=== PATIENT | male | born 1940 | race Caucasian/White ===

== ENCOUNTER → 2016-04-23 | Outpatient (CLI) | payer OTHER ==
[~2016-04-23] MED LIST: GLIM4TAB2 PO; LOSA100T65 PO; METF-384 PO; NRV/5 PO; TRIA37.5 PO
[2016-04-23 13:27] LABS: ESTIMATED AVERAGE GLUCOSE 197 mg/dl; HA1C FLAG Normal (Normal)
[2016-04-23 13:37] LABS: ALT/SGPT 36 U/L (12-78); AST/SGOT 29 U/L (15-37); BLOOD UREA NITROGEN 14 mg/dl (7-18); BUN/CREATININE RATIO 15.7 (10-20); CALCIUM 8.8 mg/dl (8.5-10.1); CARBON DIOXIDE 23 mmol/L (21-32); CHLORIDE 105 mmol/L (98-107); CHOLESTEROL 206 mg/dl (0-200); CREATININE 0.92 mg/dl (0.60-1.40); GLUCOSE 197 mg/dl (70-99); POTASSIUM 4.1 mmol/L (3.5-5.1); SODIUM 139 mmol/L (136-145); TRIGLYCERIDES 130 mg/dl (0-150); VERY LOW DENSITY LIPOPROT CALC 26 mg/dl
[2016-04-23 13:40] LABS: ALB/GLOB RATIO 1.1 (0.9-2); ALKALINE PHOSPHATASE 98 U/L (45-117); CHOLESTEROL/HDL RATIO 4.8; HDL CHOLESTEROL 43 mg/dl; LDL CHOLESTEROL CALCULATED 137 mg/dl
--- NOTE | 2016-04-27 11:57 | CODING QUERY MEDICAL NECESSITY ---
SUPPORTING DIAGNOSIS NEEDED A supporting diagnosis is required for the test/procedure performed on this patient in order for us to be reimbursed by the patient's insurance. Please provide a supporting diagnosis for the following test/procedure listed below next to the test name along with your signature. *If there is no additional diagnosis for this patient that would support the following test/procedure please document that below next to the test/procedure. Test(s)/Procedure(s) that require a supporting diagnosis: * VITAMIN D 25-HYDROXY DIAGNOSIS: * DOS: 04/23/16 Provider Signature: Date: Thank you Emma Lr Health Information Management Once completed, please kindly fax back to [phone] For questions please call [phone]
== END | disposition home or self-care (01) ==
LOC: C.LABPVFM 09:04
PROVIDERS: ATTEND Nurse Practitioner Family
DX: Z00.00 Encounter for general adult medical examination without abnormal findings (principal); E11.9 Type 2 diabetes mellitus without complications; E78.5 Hyperlipidemia, unspecified; E55.9 Vitamin D deficiency, unspecified

== ENCOUNTER → 2016-11-04 | Outpatient (CLI) | payer OTHER | END | disposition home or self-care (01) | LOC: C.LABPVFM 07:09 | PROVIDERS: ATTEND Nurse Practitioner Family | DX: E55.9 Vitamin D deficiency, unspecified (principal) ==

== ENCOUNTER → 2016-11-11 | Outpatient (CLI) | payer OTHER ==
--- NOTE | 2016-11-11 13:04 | DIAGNOSTIC IMAGING REPORT ---
RIGHT SHOULDER 3 VIEWS CLINICAL HISTORY: Right shoulder pain. FINDINGS: 3 views of the right shoulder are obtained. No prior studies are available for comparison at the time of dictation. The skeletal structures are osteopenic. No fracture or dislocation is seen. Advanced productive degenerative change is identified at the acromioclavicular joint. Arthritic change is also seen at the glenohumeral joint with narrowing of the joint space, bone sclerosis, subchondral cyst rotation, and large spurs arising from the inferior aspect of the humeral head. Arthritic change is also seen in the greater tuberosity. The overlying soft tissues are within normal limits. The imaged right upper lobe lung parenchyma appears clear. IMPRESSION: Osteopenia and arthritic change as above. No right shoulder fracture or dislocation is seen. Electronically signed by: Valentín Moody M.D. 11/11/2016 1:02 PM Dictated Date/Time: 11/11/2016 1:01 PM
[2016-11-11 18:10] LABS: ALT/SGPT 32 U/L (12-78); BLOOD UREA NITROGEN 12 mg/dl (7-18); BUN/CREATININE RATIO 13.9 (10-20); CALCIUM 8.9 mg/dl (8.5-10.1); CARBON DIOXIDE 25 mmol/L (21-32); CHLORIDE 104 mmol/L (98-107); CHOLESTEROL 203 mg/dl (0-200); CREATININE 0.89 mg/dl (0.60-1.40); GLUCOSE 137 mg/dl (70-99); POTASSIUM 3.9 mmol/L (3.5-5.1); SODIUM 138 mmol/L (136-145)
[2016-11-11 18:13] LABS: ALB/GLOB RATIO 1.1 (0.9-2); ALKALINE PHOSPHATASE 90 U/L (45-117); AST/SGOT 25 U/L (15-37); CHOLESTEROL/HDL RATIO 4.4; HDL CHOLESTEROL 46 mg/dl; LDL CHOLESTEROL CALCULATED 124 mg/dl; TRIGLYCERIDES 167 mg/dl (0-150); VERY LOW DENSITY LIPOPROT CALC 33 mg/dl
[2016-11-11 18:42] LABS: LYME DISEASE AB IGG NEG (NEG); LYME DISEASE AB IGM NEG (NEG)
[2016-11-12 08:19] LABS: ESTIMATED AVERAGE GLUCOSE 177 mg/dl; HA1C FLAG Normal (Normal)
== END | disposition home or self-care (01) ==
LOC: C.RADPV 12:07
PROVIDERS: ATTEND Nurse Practitioner Family
DX: M25.511 Pain in right shoulder (principal); W57.XXXA Bitten or stung by nonvenomous insect and other nonvenomous arthropods, initial encounter; I10 Essential (primary) hypertension; E11.9 Type 2 diabetes mellitus without complications; E78.5 Hyperlipidemia, unspecified

== ENCOUNTER → 2017-07-26 | Outpatient (CLI) | payer OTHER ==
[2017-07-26 12:55] LABS: ALBUMIN 4.1 gm/dl (3.4-5.0); BLOOD UREA NITROGEN 14 mg/dl (7-18); CALCIUM 8.8 mg/dl (8.5-10.1); CARBON DIOXIDE 24 mmol/L (21-32); CREATININE 0.93 mg/dl (0.60-1.40); GLUCOSE 122 mg/dl (70-99); POTASSIUM 4.1 mmol/L (3.5-5.1); SODIUM 136 mmol/L (136-145)
[2017-07-26 13:00] LABS: ALKALINE PHOSPHATASE 80 U/L (45-117); ALT/SGPT 24 U/L (12-78); AST/SGOT 27 U/L (15-37); CHOLESTEROL 186 mg/dl (0-200); LDL CHOLESTEROL CALCULATED 119 mg/dl; TOTAL PROTEIN 7.5 gm/dl (6.4-8.2)
[2017-07-26 13:07] LABS: HEMOGLOBIN A1C 7.4 % (4.5-5.6)
== END | disposition home or self-care (01) ==
LOC: C.LABPVFM 08:44
PROVIDERS: ATTEND Nurse Practitioner Family
DX: E11.9 Type 2 diabetes mellitus without complications (principal); E78.5 Hyperlipidemia, unspecified

== ENCOUNTER 2025-02-03 03:46 | Observation (INO) ==
--- NOTE | 2025-02-03 04:00 | Emergency Department Note ---
Impression & Plan Stroke-like symptom Admission ED Provider Note HPI: History obtained from patient. The patient is a 84-year-old gentleman with history of previous CVA, BPH, type 2 diabetes, paroxysmal atrial fibrillation, coronary artery disease, hypertension, who presents to the emergency department with a chief complaint of visual changes from his left eye that been ongoing since yesterday. Patient states he has baseline poor vision from his right eye since childhood secondary to amblyopia, he states over the past 24 hours or so he has also developed a variety of different visual changes from his left eye and now he feels that his vision is worse in his left eye than it is in the right eye. Patient denies any motor deficits, denies any paresthesias in the extremities. On arrival here to the ED the patient is alert, he follows commands appropriately, he does not have any focal deficits, he otherwise appears to be in no acute distress. Patient denies any ocular pain, denies any trauma or foreign body sensation to the eye. ROS: - Per HPI Differential Diagnosis: Acute ischemic stroke, optic neuritis, macular degeneration, diabetic retinopathy, glaucoma, retinal detachment, vitreous hemorrhage, amongst other potential pathologies. *Outpatient medications and allergy history reviewed. PE: General: Alert HEENT: Normocephalic, trachea midline Eyes: Extraocular eye movement is intact, no scleral erythema, pupils are equal and reactive bilaterally Pulmonary: Clear to auscultation bilaterally, no wheezing Cardio: Regular rate and rhythm GI: Abdomen is soft to palpation : No suprapubic tenderness MSK: No evidence of trauma or malformation of the extremities, no edema Skin: No evidence of rash Neuro: Alert, no focal deficits, equal bilateral hydrogeology professor strength, symmetrical facial movements are appreciated, no drift of the upper extremities or lower extremities with testing against gravity Psychiatric: Cooperative Intraocular pressure: Right eye: 12 mmHg Left eye: 14 mmHg INDEPENDENT INTERPRETATIONS: monitoring manager: (As interpreted by myself): - An order was placed for continuous cardiac monitoring - Patient was noted to be in sinus rhythm with a rate of 78 EKG: (As interpreted by myself): Rate: 77 Rhythm: Sinus rhythm Intervals: QRS 148 ms, QTc 504 ms, within normal limits ST changes: No ST elevation Time: 0351 NIH STROKE SCALE: 1A: Level of consciousness Alert; keenly responsive 0 1B: Ask month and age Both questions right 0 1C: 'Blink eyes' & 'squeeze hands' Performs both tasks 0 2: Horizontal extraocular movements Normal 0 3: Visual chaudhary +2 4: Facial palsy Normal symmetry 0 5A: Left arm motor drift No drift for 10 seconds 0 5B: Right arm motor drift No drift for 10 seconds 0 6A: Left leg motor drift No drift for 5 seconds 0 6B: Right leg motor drift No drift for 5 seconds 0 7: Limb Ataxia No ataxia 0 8: Sensation Normal; no sensory loss 0 9: Language/aphasia Normal; no aphasia 0 10: Dysarthria Normal 0 11: Extinction/inattention No abnormality 0 TOTAL NIH SCORE = +2 Interventions provided in ED: -ASA, IV fluid bolus Medical Decision Making: Shortly after the patient arrived IV was established and lab work obtained, patient was placed on classroom monitor. Stroke scale is 2 for visual changes, patient is not a candidate for thrombolytics given onset of symptoms yesterday and being outside the window for thrombolytics. Patient overall appears well without any focal motor deficits, he complains of some visual change that started yesterday at around 2 PM. Given this, stroke workup was initiated. Patient is noted to have baseline deficits of his right eye/vision therefore unclear if his symptoms are actually bilateral. Patient was not able to read anything on visual acuity testing per the RN. Lab work shows no leukocytosis, hemoglobin is 9.3 which is near baseline for the patient, platelet count is normal, CMP does not show any evidence of any critical findings. Glucose is 147, troponin is negative, EKG per my interpretation shows normal sinus rhythm. CT imaging of the head as well as CT angiography of the head and neck were obtained, there is no evidence of any acute intracranial hemorrhage, suggestion is made of luminal narrowing at the right vertebral artery hypoplastic versus possible thrombosis. Patient was given aspirin here in the ED, he was he was also given IV fluids. Intraocular pressures were normal bilaterally. Low suspicion for glaucoma. No evidence of any foreign body grossly, no reported history of any trauma or foreign body sensation. Patient could potentially have retinal pathology or vitreous hemorrhage however at this point I think stroke workup would be the most urgent concern. We do not have ophthalmology available for emergent consultation at this hospital. I discussed all of this with the patient as well as his family at the bedside, they are in agreement for admission at this time for secondary workup and likely MRI imaging of the brain. I discussed the patient's case with the on-call hospitalist, Dr. Geiger, he is in agreement for admission. Patient was placed for admission in stable condition. Consultants/Discussions held with other healthcare providers: -Hospitalist, Dr. Geiger Disposition discussion held by myself with: -Patient and patient's family at the bedside Diagnosis: 1. Acute onset visual changes, nonspecific 2. Strokelike episode, acute Disposition: Admission Kong Sanon DO Emergency Medicine Past Med/Surg History Problem List (Updated 02/03/25 @ 05:55 by Kong Sanon DO) Stroke-like symptom (Acute) Sciatica of right side Peripheral neuropathy Peripheral edema BPH (benign prostatic hyperplasia) Ischemic stroke 09/08 on plavix, ASA stopped after 3 weeks Asthma (Chronic) RARELY USES PRN INH Diabetes mellitus, type 2 (Chronic) NIDDM Paroxysmal atrial fibrillation (Chronic) HX-UNDER CONTROL Esophageal dysphagia (Chronic) Anemia (Acute) Hypercholesterolemia (Chronic) GERD without esophagitis (Acute) CAD (coronary artery disease) (Chronic) HTN (hypertension) (Chronic) Medical History History of colon polyps Difficulty swallowing Sleep apnea Positive colorectal cancer screening using Cologuard test Arthritis Myocardial Infarction Aortic stenosis Pathologic fracture Hemarthrosis Mitral valve disease Left knee DJD Surgical History H/O aortic valve replacement History of cardiac cath History of coronary artery bypass graft x 2 History of colonoscopy History of right inguinal hernia repair History of cataract extraction History of uvulopalatopharyngoplasty S/P CABG x 2 Family History Mother Cancer Sister Breast cancer Denies family history of Ovarian cancer Prostate cancer Myocardial infarction Colorectal cancer Social History Smoking Status: Never smoker Second Hand Exposure: No; Do You Dip or Chew Tobacco: No; Hx Alcohol Use: Yes Hx Substance Use: No Preferred Language: Swedish Communication Ability: Effective Visual Impairment: Limited Hearing Ability: Normal Operators Teacher Required: No Beliefs That Will Affect Care: None marital status: Current Living Situation: Spouse current occupational status: retired How many Children do You have: 3 Feels Safe at Home: Yes Childhood Exposure to Second-Hand Smoke: No Diet: regular caffeine: Yes (Tea) Dental Care, Regularly: No Physical Activity Frequency: Daily Seatbelt Use: sometimes Sunscreen Use: Yes (sometimes ) Assistive Devices: Cane, Denture - Upper, Denture - Lower and Glasses Allergies Allergies Allergy/AdvReac Type Severity Reaction Status Date / Time Sulfa (Sulfonamide Allergy Mild UNKNOWN Verified 01/28/25 08:13 Antibiotics) Home Meds Home Medications Medication Instructions Recorded Confirmed acetaminophen 500 mg tablet 1,000 mg PO Q6H PRN Pain 11/30/17 01/28/25 (Tylenol Extra Strength) multivitamin 1 tab PO QAM 08/31/18 01/28/25 Previous Rx's Medication Instructions Recorded ibuprofen 200 mg tablet 400 mg (2 x 200 mg) PO Q8H PRN 10/12/21 pain #30 tabs compression stockings #1 ea 03/22/22 blood sugar diagnostic #200 ea 05/05/22 amlodipine 10 mg tablet 10 mg PO QPM #30 tabs 02/23/24 atorvastatin 10 mg tablet 10 mg PO DAILY #90 tabs 04/09/24 furosemide 20 mg tablet 20 mg PO DAILY PRN edema #90 tabs 04/29/24 tamsulosin 0.4 mg capsule 0.8 mg (2 x 0.4 mg) PO DAILY #180 05/08/24 caps albuterol sulfate 90 mcg/actuation 1 inh inhalation QID PRN shortness 05/24/24 aerosol inhaler of breath or wheezing #20.1 grams clopidogrel 75 mg tablet 75 mg PO DAILY #90 tabs 09/17/24 metoprolol tartrate 25 mg tablet 12.5 mg (1/2 x 25 mg) PO BID #90 09/17/24 tabs losartan 100 mg tablet 100 mg PO DAILY #90 tabs 11/08/24 glimepiride 2 mg tablet See Rx Instructions PO QAM #90 tabs 01/27/25 gabapentin 100 mg capsule 100 mg PO .COMPLEX #60 caps 01/28/25 Results & Data (ED) Vital Signs Vital Signs - 24 hr 02/03/25 03:50 02/03/25 03:53 02/03/25 04:00 Temperature 36.6 C Temperature Source Oral Pulse Rate 82 76 76 Pulse Rhythm Regular Pulse Strength Normal Respiratory Rate 17 16 Respiratory Effort / Characteristics Non-Labored Spontaneous Respiratory Depth Normal Respiratory Pattern Regular Blood Pressure 151/89 H 153/82 H Blood Pressure Mean 109 106 Pulse Oximetry 97 94 Oxygen Delivery Method Room Air Room Air Sepsis Recent Fever Within 48 Hours No Sepsis New/Unexplained Change in Mental Status No Sepsis Action Taken by Nursing No Action Required 02/03/25 04:09 02/03/25 04:15 02/03/25 04:30 Temperature Temperature Source Pulse Rate 73 76 79 Pulse Rhythm Pulse Strength Respiratory Rate 16 14 14 Respiratory Effort / Characteristics Respiratory Depth Respiratory Pattern Blood Pressure 141/67 H 140/64 138/72 Blood Pressure Mean 100 91 105 Pulse Oximetry 94 94 96 Oxygen Delivery Method Room Air Room Air Room Air Sepsis Recent Fever Within 48 Hours Sepsis New/Unexplained Change in Mental Status Sepsis Action Taken by Nursing 02/03/25 05:03 02/03/25 05:15 02/03/25 05:15 Temperature Temperature Source Pulse Rate 72 76 70 Pulse Rhythm Pulse Strength Respiratory Rate 16 20 16 Respiratory Effort / Characteristics Respiratory Depth Respiratory Pattern Blood Pressure 153/72 H 145/72 H 145/72 H Blood Pressure Mean 104 85 85 Pulse Oximetry 96 95 96 Oxygen Delivery Method Room Air Room Air Room Air Sepsis Recent Fever Within 48 Hours Sepsis New/Unexplained Change in Mental Status Sepsis Action Taken by Nursing 02/03/25 05:30 Temperature Temperature Source Pulse Rate 90 Pulse Rhythm Pulse Strength Respiratory Rate 20 Respiratory Effort / Characteristics Respiratory Depth Respiratory Pattern Blood Pressure 144/71 H Blood Pressure Mean 101 Pulse Oximetry 95 Oxygen Delivery Method Room Air Sepsis Recent Fever Within 48 Hours Sepsis New/Unexplained Change in Mental Status Sepsis Action Taken by Nursing Laboratory Data 02/03/25 03:55 02/03/25 03:55 Lab Results 02/03/25 02/03/25 Range/Units 03:55 04:07 WBC 6.92 (4.8-10.8) K/ul RBC 4.02 L (4.70-6.10) M/uL Hgb 9.3 L (14.0-18.0) g/dL Hct 29.8 L (42.0-52.0) % MCV 74.1 L (80.0-100.0) fL MCH 23.1 L (25.0-34.0) pg MCHC 31.2 L (32.0-36.0) g/dL RDW Std Deviation 46.5 H (36.4-46.3) fL RDW Coeff of Ann 17.6 H (11.5-14.5) % Plt Count 234 (130-400) K/uL MPV 9.8 (9.4-12.4) fL Immature Gran % (Auto) 0.3 % Neut % (Auto) 65.2 % Lymph % (Auto) 18.9 % [place] % (Auto) 10.7 % Eos % (Auto) 4.0 % Baso % (Auto) 0.9 % Neut # (Auto) 4.51 (1.40-6.50) K/uL Lymph # (Auto) 1.31 (1.20-3.40) K/uL [place] # (Auto) 0.74 H (0.11-0.59) K/uL Eos # (Auto) 0.28 (0.00-0.50) K/uL Baso # (Auto) 0.06 (0.00-0.20) K/uL Immature Gran # (Auto) 0.02 (0.01-0.20) K/uL PT 11.0 (9.0-12.0) Seconds INR 1.0 (0.9-1.1) APTT 22 (21-31) Seconds PTT Ratio 0.8 Sodium 140 (136-145) mmol/L Potassium 4.0 (3.5-5.1) mmol/L Chloride 102 (98-107) mmol/L Carbon Dioxide 30 (21-32) mmol/L Anion Gap 8 (3-11) BUN 20 (6-23) mg/dl Creatinine 1.07 (0.6-1.4) mg/dl Est Cr Clr Drug Dosing 46.5 ml/min eGFR 68.43 BUN/Creatinine Ratio 18.7 (10-20) Glucose 147 H (70-99(Fasting)) mg/dl POC Glucose 157 H (70-99) mg/dl Calcium 9.1 (8.6-10.3) mg/dl Magnesium 1.8 (1.7-2.4) mg/dl Total Bilirubin 0.5 (0.2-1.0) mg/dl AST 29 (13-39) U/L ALT 13 (7-52) U/L Alkaline Phosphatase 99 (34-104) U/L Troponin I High Sens 12.5 (0-20) pg/ml Total Protein 7.0 (6.0-8.3) gm/dl Albumin 4.1 (3.4-5.0) gm/dl Globulin 2.9 (2.5-4.0) gm/dl Albumin/Globulin Ratio 1.4 (0.9-2) Administered Medications Sodium Chloride (Nss) 1,000 mls @ 250 mls/hr IV .Q4H WEN Stop: 02/06/25 03:59 Last Admin: 02/03/25 04:06 Dose: 250 mls/hr Documented By: KARLI Discontinued Medications Ioversol (Optiray 320 125ml) 125 ml IV ONCE ONE Stop: 02/03/25 04:54 Last Admin: 02/03/25 04:53 Dose: 118 ml Documented By: DELILAH Imaging Data Radiologist's Impression: Head CT 02/03/25 03:57 EXAM: CT head/brain wo con CLINICAL HISTORY: neuro deficit, acute stroke suspected TECHNIQUE: Multiple axial images are obtained from the skull base to the vertex without contrast. CT scan was performed according to ALARA (as low as reasonably achievable). COMPARISON: 01/01/2018 06:38:16 BUSINESS CONTROL MANAGER . FINDINGS: There is cerebral atrophy. Chronic small pontine infarct. No evidence of space occupying lesion, hemorrhage, edema, mass effect, midline shift, extra axial collection, or hydrocephalus is noted. Basal cisterns are symmetric and normal in size and configuration. There are scattered periventricular hypodensities as can be seen with chronic microvascular ischemic changes. The thomas-white matter differentiation is preserved. Visualized paranasal sinuses and mastoid air cells are well aerated. Orbital contents are within normal limits. Bony structures are intact. IMPRESSION: 1. No evidence of acute intracranial abnormality is demonstrated. 2. Chronic microvascular ischemic changes.-stable. 3. Cerebral atrophy.-stable. Electronically signed by Ender Simeon 02-03-2025 05:48 AM Head CTA 02/03/25 03:57 EXAM: CT angio head w con CLINICAL HISTORY: neuro deficit, acute stroke suspected TECHNIQUE: Contrast enhanced thin slice CT angiography scan of the cerebral vessels was performed with intravenous contrast. Angiographic images were processed, 3D MIP images were acquired for interpretation. Contiguous axial images were obtained. Reformatted coronal and sagittal images were also reviewed. If IV contrast material had not been administered, the likelihood of detecting abnormalities relevant to the patient's condition would have been substantially decreased. CT scan was performed according to ALARA (as low as reasonably achievable). COMPARISON: None. FINDINGS: Nonvisualization of distal part of intracranial segment of right vertebral artery- possibility of hypoplastic/ thrombosis. Atherosclerotic calcifications are noted involving cavernous, clinoid and supraclinoid segment of bilateral internal carotid arteries intracranial segment of bilateral vertebral arteries causes mild luminal narrowing. Rest of Bilateral internal carotid arteries show normal course, calibre and opacification in the canalicular and cavernous part. Their division into the anterior cerebral artery and middle cerebral artery is defined. A1, A2 and M1, M2 segments are normal on both the sides. Left veretbral artery is seen continuing as basilar artery. Basilar artery shows normal course, caliber and opacification. Its division into the posterior cerebral arteries is defined. Bilateral P1 and P2 segments are normal. Visualized venous structures show normal opacification. No evidence of intracranial aneurysm or AV malformation is seen. IMPRESSION: Nonvisualization of distal part of intracranial segment of right vertebral artery- possibility of hypoplastic / thrombosis. Atherosclerotic calcifications are noted involving proximal part of V4 segment of right vertebral artery with mild to moderate luminal narrowing. Atherosclerotic calcifications are noted involving cavernous, clinoid and supraclinoid segment of bilateral internal carotid arteries and V4 segment of left vertebral artery causing mild luminal narrowing. Electronically signed by Ender Simeon 02-03-2025 05:58 AM Neck CTA 02/03/25 03:57 EXAM: CT angio neck with con CLINICAL HISTORY: neuro deficit, acute stroke suspected TECHNIQUE: Contrast enhanced thin slice CT angiography scan of the carotid vessels was performed with intravenous contrast. Angiographic images were processed, 3D MIP images were acquired for interpretation.Contiguous axial images were obtained. Reformatted coronal and sagittal images were also reviewed. If IV contrast material had not been administered, the likelihood of detecting abnormalities relevant to the patient's condition would have been substantially decreased. CT scan was performed according to ALARA (as low as reasonably achievable). COMPARISON: None. FINDINGS: Atherosclerotic calcifications are noted involving bilateral carotid bulb , causes 60%-70% luminal narrowing on left side of left carotid bulb and origin of left internal carotid artery. No hemodynamically significant narrowing on right side. Included great vessels of the aortic arch are grossly unremarkable. Common carotid artery, rest of the internal carotid artery , and origin of the external carotid artery on both sides are well opacified. Vertebral arteries are well opacified. Jugular veins are well opacified. Included lung apices are grossly unremarkable. Thyroid gland appears unremarkable. IMPRESSION: Atherosclerotic calcifications are noted involving bilateral carotid bulb , causes 60%-70% luminal narrowing on left side of left carotid bulb and origin of left internal carotid artery. No hemodynamically significant narrowing on right side. Electronically signed by Ender Simeon 02-03-2025 06:05 AM Discharge Plan Visit Data Chief Complaint: Visual Disturbance Stated Complaint: VISION CHANGES - FLOATERS IN EYES - [facility] ED Provider: Kong Sanon Discharge Problem: Stroke-like symptom Patient Disposition: Admitted As Inpatient Condition: Fair Forms Stand Alone Forms: [facility] [employer] Prescriptions Prescriptions: No Action ibuprofen 200 mg tablet 400 mg PO Q8H PRN (Reason: pain) Qty: 30 0RF Rx Instructions: Per [facility] D/C instructions 10/08/21- SHAI MAYORGA (DME) compression stockings See Rx Instructions .Route .MEDSUPPLY Qty: 1 0RF Rx Instructions: knee high 15-20 mmhg (DME) blood sugar diagnostic Strip See Rx Instructions .ROUTE .MEDSUPPLY Qty: 200 3RF Rx Instructions: Test 1-2 times a day Dx:E11.9 amlodipine 10 mg tablet 10 mg PO QPM Qty: 30 0RF atorvastatin 10 mg tablet 10 mg PO DAILY Qty: 90 3RF furosemide 20 mg tablet 20 mg PO DAILY PRN (Reason: edema) Qty: 90 1RF tamsulosin 0.4 mg capsule 0.8 mg PO DAILY Qty: 180 3RF Hold Instructions: not working, no taking Rx Instructions: pt aware dose change albuterol sulfate 90 mcg/actuation HFA aerosol inhaler 1 inh inhalation QID PRN (Reason: shortness of breath or wheezing) Qty: 20.1 2RF clopidogrel 75 mg tablet 75 mg PO DAILY Qty: 90 3RF metoprolol tartrate 25 mg tablet 12.5 mg PO BID Qty: 90 3RF losartan 100 mg tablet 100 mg PO DAILY Qty: 90 3RF glimepiride 2 mg tablet See Rx Instructions PO QAM Qty: 90 3RF Rx Instructions: 1 tab in am pt aware dose reduced gabapentin 100 mg capsule 100 mg PO .COMPLEX Qty: 60 3RF Rx Instructions: 100 mg orally 1 at bedtime for 2 weeks then 1 twice a day; acetaminophen [Tylenol Extra Strength] 500 mg Tablet 1,000 mg PO Q6H PRN (Reason: Pain) multivitamin Tablet 1 tab PO QAM Referrals Referrals: Carli Lindo CRNP [Primary Care Provider] -
[2025-02-03] MEDS: SODIUM CHLORIDE 0.9% 1,000 ML IV SCH (04:06)
[2025-02-03 04:35] LABS: Alanine Aminotransferase 13.0 U/L (7-52); Albumin Globulin Ratio 1.4 (0.9-2); Albumin Level 4.1 gm/dl (3.4-5.0); Alkaline Phosphatase 99.0 U/L (34-104); Anion Gap 8.0 (3-11); Bilirubin,Total 0.5 mg/dl (0.2-1.0); Blood Urea Nitrogen 20.0 mg/dl (6-23); Calcium 9.1 mg/dl (8.6-10.3); Carbon Dioxide 30.0 mmol/L (21-32); Chloride 102.0 mmol/L (98-107); Creatinine Clr Calc Pharmacy 46.5 ml/min; Globulin 2.9 gm/dl (2.5-4.0); Glucose 147.0 mg/dl (70-99(Fasting)); Magnesium 1.8 mg/dl (1.7-2.4); Potassium 4.0 mmol/L (3.5-5.1); Sodium 140.0 mmol/L (136-145); Total Protein 7.0 gm/dl (6.0-8.3)
[2025-02-03 04:36] LABS: Hematocrit (blood only) 29.8 % (42.0-52.0); Hemoglobin 9.3 g/dL (14.0-18.0); Immature Granulocytes # (auto) 0.02 K/uL (0.01-0.20); Immature Granulocytes % (auto) 0.3 %; Mean Corpuscular Hemoglobin 23.1 pg (25.0-34.0); Mean Corpuscular Volume 74.1 fL (80.0-100.0); Platelet Count 234 K/uL (130-400); RDW Standard Deviation 46.5 fL (36.4-46.3); Red Blood Count 4.02 M/uL (4.70-6.10); White Blood Count 6.92 K/ul (4.8-10.8)
[2025-02-03 04:50] LABS: INR 1.0 (0.9-1.1); Partial Thromboplastin Time 22 Seconds (21-31); Prothrombin Time 11.0 Seconds (9.0-12.0)
[2025-02-03] MEDS: OPTIRAY 320 125ml IV ONE (04:53)
--- NOTE | 2025-02-03 05:48 | CT Scan Report ---
EXAM: CT head/brain wo con CLINICAL HISTORY: neuro deficit, acute stroke suspected TECHNIQUE: Multiple axial images are obtained from the skull base to the vertex without contrast. CT scan was performed according to ALARA (as low as reasonably achievable). COMPARISON: 01/01/2018 06:38:16 MANAGER SHIP . FINDINGS: There is cerebral atrophy. Chronic small pontine infarct. No evidence of space occupying lesion, hemorrhage, edema, mass effect, midline shift, extra axial collection, or hydrocephalus is noted. Basal cisterns are symmetric and normal in size and configuration. There are scattered periventricular hypodensities as can be seen with chronic microvascular ischemic changes. The thomas-white matter differentiation is preserved. Visualized paranasal sinuses and mastoid air cells are well aerated. Orbital contents are within normal limits. Bony structures are intact. IMPRESSION: 1. No evidence of acute intracranial abnormality is demonstrated. 2. Chronic microvascular ischemic changes.-stable. 3. Cerebral atrophy.-stable. Electronically signed by Ender Simeon 02-03-2025 05:48 AM
--- NOTE | 2025-02-03 05:58 | CT Scan Report ---
EXAM: CT angio head w con CLINICAL HISTORY: neuro deficit, acute stroke suspected TECHNIQUE: Contrast enhanced thin slice CT angiography scan of the cerebral vessels was performed with intravenous contrast. Angiographic images were processed, 3D MIP images were acquired for interpretation. Contiguous axial images were obtained. Reformatted coronal and sagittal images were also reviewed. If IV contrast material had not been administered, the likelihood of detecting abnormalities relevant to the patient's condition would have been substantially decreased. CT scan was performed according to ALARA (as low as reasonably achievable). COMPARISON: None. FINDINGS: Nonvisualization of distal part of intracranial segment of right vertebral artery- possibility of hypoplastic/ thrombosis. Atherosclerotic calcifications are noted involving cavernous, clinoid and supraclinoid segment of bilateral internal carotid arteries intracranial segment of bilateral vertebral arteries causes mild luminal narrowing. Rest of Bilateral internal carotid arteries show normal course, calibre and opacification in the canalicular and cavernous part. Their division into the anterior cerebral artery and middle cerebral artery is defined. A1, A2 and M1, M2 segments are normal on both the sides. Left veretbral artery is seen continuing as basilar artery. Basilar artery shows normal course, caliber and opacification. Its division into the posterior cerebral arteries is defined. Bilateral P1 and P2 segments are normal. Visualized venous structures show normal opacification. No evidence of intracranial aneurysm or AV malformation is seen. IMPRESSION: Nonvisualization of distal part of intracranial segment of right vertebral artery- possibility of hypoplastic / thrombosis. Atherosclerotic calcifications are noted involving proximal part of V4 segment of right vertebral artery with mild to moderate luminal narrowing. Atherosclerotic calcifications are noted involving cavernous, clinoid and supraclinoid segment of bilateral internal carotid arteries and V4 segment of left vertebral artery causing mild luminal narrowing. Electronically signed by Ender Simeon 02-03-2025 05:58 AM
--- NOTE | 2025-02-03 06:06 | CT Scan Report ---
EXAM: CT angio neck with con CLINICAL HISTORY: neuro deficit, acute stroke suspected TECHNIQUE: Contrast enhanced thin slice CT angiography scan of the carotid vessels was performed with intravenous contrast. Angiographic images were processed, 3D MIP images were acquired for interpretation.Contiguous axial images were obtained. Reformatted coronal and sagittal images were also reviewed. If IV contrast material had not been administered, the likelihood of detecting abnormalities relevant to the patient's condition would have been substantially decreased. CT scan was performed according to ALARA (as low as reasonably achievable). COMPARISON: None. FINDINGS: Atherosclerotic calcifications are noted involving bilateral carotid bulb , causes 60%-70% luminal narrowing on left side of left carotid bulb and origin of left internal carotid artery. No hemodynamically significant narrowing on right side. Included great vessels of the aortic arch are grossly unremarkable. Common carotid artery, rest of the internal carotid artery , and origin of the external carotid artery on both sides are well opacified. Vertebral arteries are well opacified. Jugular veins are well opacified. Included lung apices are grossly unremarkable. Thyroid gland appears unremarkable. IMPRESSION: Atherosclerotic calcifications are noted involving bilateral carotid bulb , causes 60%-70% luminal narrowing on left side of left carotid bulb and origin of left internal carotid artery. No hemodynamically significant narrowing on right side. Electronically signed by Ender Simeon 02-03-2025 06:05 AM
[2025-02-03] MEDS: ASPIRIN 81 MG CHEW PO STA (06:20)
--- NOTE | 2025-02-03 06:33 | History & Physical Report ---
Date of Service February 03, 2025 Assessment & Plan (1) Blurred vision, left eye: (2) Amblyopia, right eye: (3) Peripheral neuropathy: (4) Ischemic stroke: Plan The patient is a 84-year-old male with past medical history including right sided sciatica, peripheral neuropathy, peripheral edema, BPH with LUTS, ischemic stroke, asthma, diabetes mellitus type 2, PAF, esophageal dysphagia, hypercholesterolemia, GERD without esophagitis, CAD, and hypertension. He was at his great granddaughter's birthday green party yesterday and then around 2:00 in the afternoon he started developing some blurry vision in his left eye. This was preceded by increased in number of floaters, and then later was followed by a bloody film going across his vision. His symptoms continued to progress over the next 12 hours, and patient presented to the emergency department on the morning of 1116 at about 4:00. Workup in the emergency department included a CT scan of the head that showed no acute finding, CTA head and neck showed no acute findings. The patient began gabapentin 3 days before his symptoms developed, he was concerned that symptoms might be related to gabapentin. He typically has poor vision in the right eye, and has not amblyopia since he was a child. [facility] The ED is asked to get a retinal scan performed while in the ED, to help differentiate possibility of retinal hemorrhage versus vitreous hemorrhage versus combination of 2 versus retinal detachment. Acute onset of blurred vision in the left eye/chronic amblyopia with decreased vision right eye- Patient's symptoms began around 2:00 in the afternoon yesterday, and progressively worsened throughout the day. He had an increase in number of floaters, followed by a bloody film across his vision. He now reports that the vision in his left eye is worse than the vision of the right eye. CT scan of head without contrast shows a chronic small pontine infarct. No evidence of acute intracranial abnormality is demonstrated. Chronic microvascular ischemic changes that are stable. History of atrophy is stable. CT angiography of head shows nonvisualization of the distal part of the intracranial segment of right vertebral artery-possibly hypoplastic/thrombosis. Atherosclerotic changes are noted involving proximal part of V4 segment of right vertebral artery with mild to moderate luminal narrowing. Atherosclerotic calcifications noted involving cavernous, clinoid, supraclinoid segments of bilateral internal carotid arteries and V4 segment of left vertebral artery causing mild luminal narrowing. MRI brain has been ordered. The patient will be admitted to telemetry for serial cardiac enzymes, serial EKG's, cardiac rhythm monitoring and a 2-D echocardiogram with Dopplers. Symptoms in this patient have more suggestive of an internal ocular issue as opposed to a cerebral issue. I also do not think his symptoms are secondary to recent start of gabapentin, which will be held in either case. We unfortunately do not have ophthalmology on staff. If remainder of neurowork- up is negative, would try to get patient into see retina specialty or ophthalmology for dilated fundus examination JULIO C. CAD/hypertension/history of ischemic stroke- Continue amlodipine, lisinopril, losartan, metoprolol to tartrate Diabetes mellitus- Hold glimepiride Glucose 147 on admission Placed on Accu-Cheks with NovoLog SSI Hyperlipidemia- Continue atorvastatin Check fasting lipid panel Asthma- Continue usual inhalers BPH with LUTS- Continue tamsulosin Arthritis- Hold ibuprofen History of Present Illness Primary Care Provider: JESSY Joseph The patient is a 84-year-old male with past medical history including right sided sciatica, peripheral neuropathy, peripheral edema, BPH with LUTS, ischemic stroke, asthma, diabetes mellitus type 2, PAF, esophageal dysphagia, hypercholesterolemia, GERD without esophagitis, CAD, and hypertension. He was at his great granddaughter's birthday green party yesterday and then around 2:00 in the afternoon he started developing some blurry vision in his left eye. This was preceded by increased in number of floaters, and then later was followed by a bloody film going across his vision. His symptoms continued to progress over the next 12 hours, and patient presented to the emergency department on the morning of 1116 at about 4:00. Workup in the emergency department included a CT scan of the head that showed no acute finding, CTA head and neck showed no acute findings. The patient began gabapentin 3 days before his symptoms developed, he was concerned that symptoms might be related to gabapentin. He typically has poor vision in the right eye, and has not amblyopia since he was a child. [facility]. The ED is asked to get a retinal scan performed while in the ED, to help differentiate possibility of retinal hemorrhage versus vitreous hemorrhage versus combination of 2 versus retinal detachment. Allergies Allergy/AdvReac Type Severity Reaction Status Date / Time Sulfa (Sulfonamide Allergy Mild UNKNOWN Verified 01/28/25 08:13 Antibiotics) Home Medications Medication Instructions Recorded Confirmed Type acetaminophen 500 mg tablet 1,000 mg PO Q6H PRN Pain 11/30/17 01/28/25 History (Tylenol Extra Strength) multivitamin 1 tab PO QAM 08/31/18 01/28/25 History ibuprofen 200 mg tablet 400 mg (2 x 200 mg) PO Q8H PRN 10/12/21 12/06/24 Rx pain #30 tabs compression stockings #1 ea 03/22/22 01/28/25 Rx blood sugar diagnostic #200 ea 05/05/22 01/28/25 Rx amlodipine 10 mg tablet 10 mg PO QPM #30 tabs 02/23/24 12/06/24 Rx atorvastatin 10 mg tablet 10 mg PO DAILY #90 tabs 04/09/24 12/06/24 Rx furosemide 20 mg tablet 20 mg PO DAILY PRN edema #90 tabs 04/29/24 12/06/24 Rx tamsulosin 0.4 mg capsule 0.8 mg (2 x 0.4 mg) PO DAILY #180 05/08/24 01/28/25 Rx caps albuterol sulfate 90 mcg/actuation 1 inh inhalation QID PRN shortness 05/24/24 01/28/25 Rx aerosol inhaler of breath or wheezing #20.1 grams clopidogrel 75 mg tablet 75 mg PO DAILY #90 tabs 09/17/24 12/06/24 Rx metoprolol tartrate 25 mg tablet 12.5 mg (1/2 x 25 mg) PO BID #90 09/17/24 01/28/25 Rx tabs losartan 100 mg tablet 100 mg PO DAILY #90 tabs 11/08/24 01/28/25 Rx glimepiride 2 mg tablet See Rx Instructions PO QAM #90 tabs 01/27/25 Rx gabapentin 100 mg capsule 100 mg PO .COMPLEX #60 caps 01/28/25 01/28/25 Rx Past Med/Surg History Problem List (Updated 02/03/25 @ 06:44 by Emiliano Geiger MD) Blurred vision, left eye Amblyopia, right eye Stroke-like symptom (Acute) Sciatica of right side Peripheral neuropathy Peripheral edema BPH (benign prostatic hyperplasia) Ischemic stroke 09/08 on plavix, ASA stopped after 3 weeks Asthma (Chronic) RARELY USES PRN INH Diabetes mellitus, type 2 (Chronic) NIDDM Paroxysmal atrial fibrillation (Chronic) HX-UNDER CONTROL Esophageal dysphagia (Chronic) Anemia (Acute) Hypercholesterolemia (Chronic) GERD without esophagitis (Acute) CAD (coronary artery disease) (Chronic) HTN (hypertension) (Chronic) Medical History History of colon polyps Difficulty swallowing Sleep apnea Positive colorectal cancer screening using Cologuard test Arthritis Myocardial Infarction Aortic stenosis Pathologic fracture Hemarthrosis Mitral valve disease Left knee DJD Surgical History H/O aortic valve replacement History of cardiac cath History of coronary artery bypass graft x 2 History of colonoscopy History of right inguinal hernia repair History of cataract extraction History of uvulopalatopharyngoplasty S/P CABG x 2 Family History Mother Cancer Sister Breast cancer Denies family history of Ovarian cancer Prostate cancer Myocardial infarction Colorectal cancer Social History Smoking Status: Never smoker Second Hand Exposure: No; Do You Dip or Chew Tobacco: No; Hx Alcohol Use: Yes Hx Substance Use: No Preferred Language: Yi Communication Ability: Effective Visual Impairment: Limited Hearing Ability: Normal 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 Beliefs That Will Affect Care: None marital status: Current Living Situation: Spouse current occupational status: retired How many Children do You have: 3 Feels Safe at Home: Yes Childhood Exposure to Second-Hand Smoke: No Diet: regular caffeine: Yes (Tea) Dental Care, Regularly: No Physical Activity Frequency: Daily Seatbelt Use: sometimes Sunscreen Use: Yes (sometimes ) Assistive Devices: Cane, Denture - Upper, Denture - Lower and Glasses Review of Systems Review of Systems: The patient denies chest pain, palpitations, shortness of breath, dyspnea on exertion, cough, lower extremity swelling, sore throat, fevers, chills, sweats, fatigue, nausea, vomiting, diarrhea , constipation, abdominal pain, pelvic pain, blood in urine or stool, dysuria, urinary frequency or urgency, lightheadedness, dizziness, headache, memory loss, loss of consciousness, rash, abnormal bruising or bleeding focal or generalized weakness, numbness or tingling in arms or legs, generalized arthralgias or myalgias, back or neck pain, or night sweats. The review of systems is otherwise negative other than for that already noted above, and at least 10 systems have been reviewed. Physical Exam Physical Exam: The patient is awake, alert and oriented 3, well developed and well nourished, normocephalic and atraumatic, lying in bed and in no acute distress. HEENT--pupils pinpoint and not responsive to light or accommodation. Mucous membranes and oropharynx dry. Neck--supple. No JVD. No bruits. Thyroid normal, trachea midline, no adenopathy. Heart--normal S1 and S2. No murmurs, rubs or gallops. Lungs--clear bilaterally, no respiratory distress, no accessory muscle use. Abdomen--normal bowel sounds and soft. Nontender. Nondistended, no hernias or masses, no organomegaly. Extremities--no cyanosis or clubbing. No edema. There are good distal pulses b/l. Dermatologic--normal skin turgor, normal color, no abnormal lymph nodes, no rash. Neurologic--cranial nerves II through XII grossly intact. Rheumatologic--normal range of motion. Psychiatric--normal affect. Results & Data Results & Data Vital Signs (Past 12 Hours) Vital Signs Temp Pulse Pulse Resp BP BP Pulse Ox 02/03/25 06:26 76 20 132/87 96 02/03/25 05:30 90 20 144/71 H 95 02/03/25 05:15 70 16 145/72 H 96 02/03/25 05:15 76 20 145/72 H 95 02/03/25 05:03 72 16 153/72 H 96 02/03/25 04:30 79 14 138/72 96 02/03/25 04:15 76 14 140/64 94 02/03/25 04:09 73 16 141/67 H 94 02/03/25 04:00 76 16 153/82 H 94 02/03/25 03:53 76 02/03/25 03:50 36.6 C 82 17 151/89 H 97 O2 Del Method 02/03/25 06:26 Room Air 02/03/25 05:30 Room Air 02/03/25 05:15 Room Air 02/03/25 05:15 Room Air 02/03/25 05:03 Room Air 02/03/25 04:30 Room Air 02/03/25 04:15 Room Air 02/03/25 04:09 Room Air 02/03/25 04:00 Room Air 02/03/25 03:53 02/03/25 03:50 Room Air Laboratory Results Laboratory Results WBC 6.92 K/ul (4.8-10.8) 02/03/25 03:55 RBC 4.02 M/uL (4.70-6.10) L 02/03/25 03:55 Hgb 9.3 g/dL (14.0-18.0) L 02/03/25 03:55 Hct 29.8 % (42.0-52.0) L 02/03/25 03:55 MCV 74.1 fL (80.0-100.0) L 02/03/25 03:55 MCH 23.1 pg (25.0-34.0) L 02/03/25 03:55 MCHC 31.2 g/dL (32.0-36.0) L 02/03/25 03:55 RDW Std Deviation 46.5 fL (36.4-46.3) H 02/03/25 03:55 RDW Coeff of Ann 17.6 % (11.5-14.5) H 02/03/25 03:55 Plt Count 234 K/uL (130-400) 02/03/25 03:55 MPV 9.8 fL (9.4-12.4) 02/03/25 03:55 Immature Gran % (Auto) 0.3 % 02/03/25 03:55 Neut % (Auto) 65.2 % 02/03/25 03:55 Lymph % (Auto) 18.9 % 02/03/25 03:55 [place] % (Auto) 10.7 % 02/03/25 03:55 Eos % (Auto) 4.0 % 02/03/25 03:55 Baso % (Auto) 0.9 % 02/03/25 03:55 Neut # (Auto) 4.51 K/uL (1.40-6.50) 02/03/25 03:55 Lymph # (Auto) 1.31 K/uL (1.20-3.40) 02/03/25 03:55 [place] # (Auto) 0.74 K/uL (0.11-0.59) H 02/03/25 03:55 Eos # (Auto) 0.28 K/uL (0.00-0.50) 02/03/25 03:55 Baso # (Auto) 0.06 K/uL (0.00-0.20) 02/03/25 03:55 Immature Gran # (Auto) 0.02 K/uL (0.01-0.20) 02/03/25 03:55 PT 11.0 Seconds (9.0-12.0) 02/03/25 03:55 INR 1.0 (0.9-1.1) 02/03/25 03:55 APTT 22 Seconds (21-31) 02/03/25 03:55 PTT Ratio 0.8 02/03/25 03:55 Sodium 140 mmol/L (136-145) 02/03/25 03:55 Potassium 4.0 mmol/L (3.5-5.1) 02/03/25 03:55 Chloride 102 mmol/L (98-107) 02/03/25 03:55 Carbon Dioxide 30 mmol/L (21-32) 02/03/25 03:55 Anion Gap 8 (3-11) 02/03/25 03:55 BUN 20 mg/dl (6-23) 02/03/25 03:55 Creatinine 1.07 mg/dl (0.6-1.4) 02/03/25 03:55 Est Cr Clr Drug Dosing 46.5 ml/min 02/03/25 03:55 eGFR 68.43 02/03/25 03:55 BUN/Creatinine Ratio 18.7 (10-20) 02/03/25 03:55 Glucose 147 mg/dl (70-99(Fasting)) H 02/03/25 03:55 POC Glucose 157 mg/dl (70-99) H 02/03/25 04:07 Calcium 9.1 mg/dl (8.6-10.3) 02/03/25 03:55 Magnesium 1.8 mg/dl (1.7-2.4) 02/03/25 03:55 Total Bilirubin 0.5 mg/dl (0.2-1.0) 02/03/25 03:55 AST 29 U/L (13-39) 02/03/25 03:55 ALT 13 U/L (7-52) 02/03/25 03:55 Alkaline Phosphatase 99 U/L (34-104) 02/03/25 03:55 Troponin I High Sens 12.5 pg/ml (0-20) 02/03/25 03:55 Total Protein 7.0 gm/dl (6.0-8.3) 02/03/25 03:55 Albumin 4.1 gm/dl (3.4-5.0) 02/03/25 03:55 Globulin 2.9 gm/dl (2.5-4.0) 02/03/25 03:55 Albumin/Globulin Ratio 1.4 (0.9-2) 02/03/25 03:[address] 02/03/25 03:57 EXAM: CT head/brain wo con CLINICAL HISTORY: neuro deficit, acute stroke suspected TECHNIQUE: Multiple axial images are obtained from the skull base to the vertex without contrast. CT scan was performed according to ALARA (as low as reasonably achievable). COMPARISON: 01/01/2018 06:38:16 [facility] [employer] . FINDINGS: There is cerebral atrophy. Chronic small pontine infarct. No evidence of space occupying lesion, hemorrhage, edema, mass effect, midline shift, extra axial collection, or hydrocephalus is noted. Basal cisterns are symmetric and normal in size and configuration. There are scattered periventricular hypodensities as can be seen with chronic microvascular ischemic changes. The thomas-white matter differentiation is preserved. Visualized paranasal sinuses and mastoid air cells are well aerated. Orbital contents are within normal limits. Bony structures are intact. IMPRESSION: 1. No evidence of acute intracranial abnormality is demonstrated. 2. Chronic microvascular ischemic changes.-stable. 3. Cerebral atrophy.-stable. Electronically signed by Ender Simeon 02-03-2025 05:48 AM Head CTA 02/03/25 03:57 EXAM: CT angio head w con CLINICAL HISTORY: neuro deficit, acute stroke suspected TECHNIQUE: Contrast enhanced thin slice CT angiography scan of the cerebral vessels was performed with intravenous contrast. Angiographic images were processed, 3D MIP images were acquired for interpretation. Contiguous axial images were obtained. Reformatted coronal and sagittal images were also reviewed. If IV contrast material had not been administered, the likelihood of detecting abnormalities relevant to the patient's condition would have been substantially decreased. CT scan was performed according to ALARA (as low as reasonably achievable). COMPARISON: None. FINDINGS: Nonvisualization of distal part of intracranial segment of right vertebral artery- possibility of hypoplastic/ thrombosis. Atherosclerotic calcifications are noted involving cavernous, clinoid and supraclinoid segment of bilateral internal carotid arteries intracranial segment of bilateral vertebral arteries causes mild luminal narrowing. Rest of Bilateral internal carotid arteries show normal course, calibre and opacification in the canalicular and cavernous part. Their division into the anterior cerebral artery and middle cerebral artery is defined. A1, A2 and M1, M2 segments are normal on both the sides. Left veretbral artery is seen continuing as basilar artery. Basilar artery shows normal course, caliber and opacification. Its division into the posterior cerebral arteries is defined. Bilateral P1 and P2 segments are normal. Visualized venous structures show normal opacification. No evidence of intracranial aneurysm or AV malformation is seen. IMPRESSION: Nonvisualization of distal part of intracranial segment of right vertebral artery- possibility of hypoplastic / thrombosis. Atherosclerotic calcifications are noted involving proximal part of V4 segment of right vertebral artery with mild to moderate luminal narrowing. Atherosclerotic calcifications are noted involving cavernous, clinoid and supraclinoid segment of bilateral internal carotid arteries and V4 segment of left vertebral artery causing mild luminal narrowing. Electronically signed by Ender Simeon 02-03-2025 05:58 AM Neck CTA 02/03/25 03:57 EXAM: CT angio neck with con CLINICAL HISTORY: neuro deficit, acute stroke suspected TECHNIQUE: Contrast enhanced thin slice CT angiography scan of the carotid vessels was performed with intravenous contrast. Angiographic images were processed, 3D MIP images were acquired for interpretation.Contiguous axial images were obtained. Reformatted coronal and sagittal images were also reviewed. If IV contrast material had not been administered, the likelihood of detecting abnormalities relevant to the patient's condition would have been substantially decreased. CT scan was performed according to ALARA (as low as reasonably achievable). COMPARISON: None. FINDINGS: Atherosclerotic calcifications are noted involving bilateral carotid bulb , causes 60%-70% luminal narrowing on left side of left carotid bulb and origin of left internal carotid artery. No hemodynamically significant narrowing on right side. Included great vessels of the aortic arch are grossly unremarkable. Common carotid artery, rest of the internal carotid artery , and origin of the external carotid artery on both sides are well opacified. Vertebral arteries are well opacified. Jugular veins are well opacified. Included lung apices are grossly unremarkable. Thyroid gland appears unremarkable. IMPRESSION: Atherosclerotic calcifications are noted involving bilateral carotid bulb , causes 60%-70% luminal narrowing on left side of left carotid bulb and origin of left internal carotid artery. No hemodynamically significant narrowing on right side. Electronically signed by Ender Simeon 02-03-2025 06:05 AM Code Status & VTE Plan Code Status Full code VTE Prophylaxis Plan VTE Prophylaxis will be ordered: Yes PG Care Time/CCT Total # of Minutes Spent Total Time Spent with Patient: Total time spent is greater than 50% in coordination of care (as documented) at patient's floor/unit and/or counseling patient: 52 minutes Coding Level of Care Code 42796 INT INP/OBS CARE 3/75MIN Diagnoses Blurred vision, left eye H53.8 Amblyopia, right eye H53.001 Peripheral polyneuropathy G62.9 Peripheral neuropathy type: polyneuropathy, unspecified Ischemic stroke I63.9 (3) Peripheral neuropathy Peripheral neuropathy type: polyneuropathy, unspecified Qualified Code(s): G62.9 - Polyneuropathy, unspecified
--- NOTE | 2025-02-03 06:53 | Billing Data ---
Date of Service February 03, 2025 Coding Level of Care Code 33861 CRITICAL CARE
[2025-02-03 07:20] LABS: Cholesterol 177.0 mg/dl (0-200); HDL Cholesterol 47.0 mg/dl; Triglycerides 85.0 mg/dl (0-150)
[2025-02-03 08:11] VITALS: RESP 16; TEMP 98.1; O2SAT 97
[2025-02-03] MEDS ORDERED: GLUCOSE 10 TAB/TUBE PO PRN (08:15)
[2025-02-03] MEDS ORDERED: GLUCAGON FOR INJ 1 MG VIAL SQ PRN (08:15)
[2025-02-03] MEDS ORDERED: GLUCOSE 40% GEL 15 GM TUBE PO PRN (08:15)
[2025-02-03] MEDS ORDERED: DEXTROSE 50% 50 ML SYRINGE IV PRN (08:15)
[2025-02-03] MEDS ORDERED: ALBUTEROL HFA 8 GM INHALER INH PRN (08:15)
[2025-02-03] MEDS ORDERED: ONDANSETRON INJ 2 MG/ML 2 ML VIAL IV PRN (08:15)
[2025-02-03] MEDS ORDERED: CARBOHYDRATES FOR HYPOGLYCEMIA PO PRN (08:15)
[2025-02-03] MEDS ORDERED: ACETAMINOPHEN 325 MG TAB PO PRN (08:15)
[2025-02-03] MEDS: ATORVASTATIN 10 MG TAB PO SCH (09:09)
[2025-02-03] MEDS: INSULIN ASPART PER UNIT CHARGE SC SCH (09:09)
[2025-02-03] MEDS: TAMSULOSIN HCL 0.4 MG CAP PO SCH (09:10)
[2025-02-03] MEDS: CLOPIDOGREL BISULFATE 75 MG TAB PO SCH (09:10)
[2025-02-03] MEDS: LOSARTAN POTASSIUM 50 MG TAB PO SCH (09:10)
[2025-02-03] MEDS: METOPROLOL TARTRATE 25 MG TAB PO SCH (09:10)
--- NOTE | 2025-02-03 10:28 | Magnetic Resonance Report ---
MRI OF THE BRAIN WITHOUT IV CONTRAST CLINICAL HISTORY: Left eye blurred vision. COMPARISON STUDY: Head CT and CTA of the head performed earlier today. TECHNIQUE: MRI of the brain was performed utilizing various T1 and T2-weighted sequences in the axial , sagittal, and coronal planes. IV contrast was not administered for this examination. FINDINGS: This exam is mildly compromised by motion artifact although is diagnostic. There are no foc i of restricted diffusion to suggest acute infarct. No acute intracranial hemorrhage, midline shift o r mass effect is present. Small old left pontine infarct is noted. White matter T2 hyperintense foci suggest small vessel disease. No intracranial masses identified on unenhanced exam. There is mild atr ophy. There are no extra-axial collections. Basal cisterns are patent. Calvarial signal is normal. Th ere is no evidence for sinusitis. IMPRESSION: 1. No acute intracranial findings. 2. Mild atrophy and moderate small vessel disease. Small old left pontine infarct. ACT 112: Negative or not required by law. Electronically signed by: Avery Guzman M.D. 02/03/2025 10:27 AM
--- NOTE | 2025-02-03 10:44 | XCELERA ---
[id number]
[2025-02-03 11:06] VITALS: BP 125/69; PULSE 87
--- NOTE | 2025-02-03 11:21 | Discharge Summary ---
Date of Service February 03, 2025 Admission HPI Per Admitting Provider The patient is a 84-year-old male with past medical history including right sided sciatica, peripheral neuropathy, peripheral edema, BPH with LUTS, ischemic stroke, asthma, diabetes mellitus type 2, PAF, esophageal dysphagia, hypercholesterolemia, GERD without esophagitis, CAD, and hypertension. He was at his great granddaughter's birthday green party yesterday and then around 2:00 in the afternoon he started developing some blurry vision in his left eye. This was preceded by increased in number of floaters, and then later was followed by a bloody film going across his vision. His symptoms continued to progress over the next 12 hours, and patient presented to the emergency department on the morning of 1116 at about 4:00. Workup in the emergency department included a CT scan of the head that showed no acute finding, CTA head and neck showed no acute findings. The patient began gabapentin 3 days before his symptoms developed, he was concerned that symptoms might be related to gabapentin. He typically has poor vision in the right eye, and has not amblyopia since he was a child. [facility] The ED is asked to get a retinal scan performed while in the ED, to help differentiate possibility of retinal hemorrhage versus vitreous hemorrhage versus combination of 2 versus retinal detachment. Admission Exam (Per Admitting) Constitutional The patient is awake, alert and oriented 3, well developed and well nourished, normocephalic and atraumatic, lying in bed and in no acute distress. HEENT--PERRL, EOMI, mucous membranes and oropharynx mildly dry Neck--supple. No JVD. No bruits. Thyroid normal, trachea midline, no adenopathy. Heart--normal S1 and S2. No murmurs, rubs or gallops. Lungs--clear bilaterally, no respiratory distress, no accessory muscle use. Abdomen--normal bowel sounds and soft. Extremities--no cyanosis or clubbing. No edema. Dermatologic--normal skin turgor, normal color, no abnormal lymph nodes, no rash. Neurologic--cranial nerves II through XII grossly intact. Rheumatologic--normal range of motion. Psychiatric--normal affect. Discharge Data Consultations 02/03/25 06:02 ED Decision to Admit Stat Hospital Course (1) Blurred vision, left eye: (2) Amblyopia, right eye: (3) Peripheral neuropathy: (4) Ischemic stroke: Plan The patient is a 84-year-old male with past medical history including right sided sciatica, peripheral neuropathy, peripheral edema, BPH with LUTS, ischemic stroke, asthma, diabetes mellitus type 2, PAF, esophageal dysphagia, hypercholesterolemia, GERD without esophagitis, CAD, and hypertension. He was at his great granddaughter's birthday green party yesterday and then around 2:00 in the afternoon he started developing some blurry vision in his left eye. This was preceded by increased in number of floaters, and then later was followed by a bloody film going across his vision. His symptoms continued to progress over the next 12 hours, and patient presented to the emergency department on the morning of 111 at about 4:00. Workup in the emergency department included a CT scan of the head that showed no acute finding, CTA head and neck showed no acute findings. The patient began gabapentin 3 days before his symptoms developed, he was concerned that symptoms might be related to gabapentin. He typically has poor vision in the right eye, and has not amblyopia since he was a child. [facility] The ED is asked to get a retinal scan performed while in the ED, to help differentiate possibility of retinal hemorrhage versus vitreous hemorrhage versus combination of 2 versus retinal detachment. Acute onset of blurred vision in the left eye/chronic amblyopia with decreased vision right eye- Patient's symptoms began around 2:00 in the afternoon yesterday, and progressively worsened throughout the day. He had an increase in number of floaters, followed by a bloody film across his vision. He now reports that the vision in his left eye is worse than the vision of the right eye. CT scan of head without contrast shows a chronic small pontine infarct. No evidence of acute intracranial abnormality is demonstrated. Chronic microvascular ischemic changes that are stable. History of atrophy is stable. CT angiography of head shows nonvisualization of the distal part of the intracranial segment of right vertebral artery-possibly hypoplastic/thrombosis. Atherosclerotic changes are noted involving proximal part of V4 segment of right vertebral artery with mild to moderate luminal narrowing. Atherosclerotic calcifications noted involving cavernous, clinoid, supraclinoid segments of bilateral internal carotid arteries and V4 segment of left vertebral artery causing mild luminal narrowing. MRI brain Shows evidence of an old pontine stroke I told the patient that the old pontine stroke could be responsible for his double vision and loss of blurry vision. However I urged him to continue his Plavix and aspirin and statin. And also to schedule an appointment to see an image processing engineer as soon as possible. I will also discontinue his gabapentin which was recently started. CAD/hypertension/history of ischemic stroke- Continue amlodipine, lisinopril, losartan, metoprolol to tartrate Diabetes mellitus- Hold glimepiride Glucose 147 on admission Placed on Accu-Cheks with NovoLog SSI Hyperlipidemia- Continue atorvastatin Check fasting lipid panel Asthma- Continue usual inhalers BPH with LUTS- Continue tamsulosin Arthritis- Hold ibuprofen Coding Level of Care Code 44136 INP/OBS DISCH >30 MIN Diagnoses Blurred vision, left eye H53.8 Amblyopia, right eye H53.001 Peripheral polyneuropathy G62.9 Peripheral neuropathy type: polyneuropathy, unspecified Ischemic stroke I63.9 Time Spent (min) 35
--- NOTE | 2025-02-04 05:58 | Electrocardiogram Report ---
Test Reason : Blood Pressure : */* mmHG Vent. Rate : 77 BPM Atrial Rate : 77 BPM P-R Int : 190 ms QRS Dur : 148 ms QT Int : 446 ms P-R-T Axes : 61 -35 116 degrees QTcB Int : 504 ms Sinus rhythm with Premature atrial complexes Left axis deviation Left bundle branch block Abnormal ECG When compared with ECG of 30-Apr-2024 05:48, Premature ventricular complexes are no longer Present Premature atrial complexes are now Present Confirmed by Thomas Albarado ([id number]) on 02/04/2025 5:58:29 AM Referred By: REFERRED SELF Confirmed By: Thomas Albarado
== END 2025-02-03 12:54 | disposition home or self-care (01) ==
LOC: SUATTDRO → ED 03:46 → 2E 03:46